=== PATIENT | female | born 1980 | race Caucasian/White ===

== ENCOUNTER 2016-07-28 13:53 | Emergency (ER) | payer BC ==
[2016-07-28 15:21] LABS: BASOPHILS 0.5 % (0.0-2.0); EOSINOPHILS 0.5 % (0-7); HEMATOCRIT 35.2 % (36.0-48.0); HEMOGLOBIN 11.7 g/dL (12-16); IMMATURE GRANULOCYTES 0.2 % (0-5); LYMPHOCYTES 37.4 % (15-50); MCH 32.5 pg (26.0-34.0); MCHC 33.2 g/dL (31.0-37.0); MCV 97.8 fL (80.0-100.0); MEAN PLATELET VOLUME 9.8 fL (7.4-10.4); MONOCYTES 6.3 % (2-11); NEUTROPHILS 55.1 % (40-80); PLATELET COUNT 226 10x3/uL (130-400); RDW 13.3 % (11.5-14.5); WBC 5.8 10x3/uL (4.8-10.8)
[2016-07-28 15:37] LABS: ALBUMIN 4.4 g/dL (3.4-5.0); ANION GAP 14.5 mmol/L (8-16); BILIRUBIN - TOTAL 0.51 mg/dL (0.2-1.3); CALCIUM 9.4 mg/dL (8.5-10.1); CARBON DIOXIDE 25.5 mmol/L (21.0-32.0)
[2016-07-28 15:42] LABS: HCG SERUM NEGATIVE (NEGATIVE)
[2016-07-28 15:46] LABS: APPEARANCE CLEAR (CLEAR); BILIRUBIN NEGATIVE (NEGATIVE); COLOR YELLOW (YELLOW); GLUCOSE NEGATIVE (NEGATIVE); KETONE NEGATIVE (NEGATIVE); LEUKOCYTE ESTERASE TRACE (NEGATIVE); NITRITE NEGATIVE (NEGATIVE); PROTEIN NEGATIVE (NEGATIVE); UROBILINOGEN NORMAL (NORMAL)
[2016-07-28 15:48] LABS: BACTERIA MODERATE /hpf (NONE SEEN); EPITHELIAL CELLS 0-5 /hpf (0-5); MUCUS <1+ /lpf (NONE SEEN); WHITE CELLS - URINE 0-5 /hpf (0-5)
[2016-07-28 15:48] LABS: AMYLASE - SERUM 50 U/L (25-115); LIPASE 125 U/L (73-393)
== END 2016-07-28 17:12 | disposition home or self-care (01) ==
LOC: D.ER 13:53
PROVIDERS: Physician Assistant
DX: N20.0 Calculus of kidney (principal)

== ENCOUNTER 2019-05-06 15:29 | Emergency (ER) | payer SELFPAY ==
[~2019-05-06] VITALS: Ht 160 cm; Wt 59.1 kg
[2019-05-06 15:32] VITALS: BP 119/73; Ht 160 cm; Wt 59.1 kg
[2019-05-06] MEDS ORDERED: VOLTAREN75 MG PO (18:24)
[2019-05-06] MEDS ORDERED: BACLOFEN20 M1 PO (18:24)
== END 2019-05-06 18:45 | disposition home or self-care (01) ==
LOC: D.ER 15:29
DX: M25.512 Pain in left shoulder (principal)